=== PATIENT | male | born 1980 | race Two or more races ===

== ENCOUNTER 2016-08-04 22:02 | Emergency (ER) | payer SELFPAY ==
[~2016-08-04 22:02] MED LIST: DICLOFENAC PO; NO MEDICATIONS; PEN-VEE K PO; TYLENOL #3 PO
== END 2016-08-04 23:51 | disposition left against medical advice (07) ==
LOC: CED 22:02
DX: Z53.21 Procedure and treatment not carried out due to patient leaving prior to being seen by health care provider (principal)